=== PATIENT | female | born 1965 | race Caucasian/White ===

== ENCOUNTER 2016-05-14 14:45 | Emergency (ER) | payer OTHER ==
[~2016-05-14] VITALS: Ht 162.6 cm; Wt 60.0 kg
[~2016-05-14 14:45] MED LIST: ALBU2.5V4 INHALATION; ARIP5TAB5 PO; ESCI10TA52 PO; FLUT1DIS5 IH; LAMO100T PO; OMEP20CA11 PO; ONDA8TAB10 PO; PRAM0.128 PO; VERA180T5 PO; albuterol sulfate INHALATION
[2016-05-14 14:47] VITALS: BP 144/83; PULSE 100; RESP 22; O2SAT 99
--- NOTE | 2016-05-14 15:04 | ED.REPORT ---
HPI-Dyspnea / Wheezing Date of Service May 14, 2016 ED Provider: Antione Rodriguez MD 50 year old female with a history of COPD on 2L home O2, anxiety and current every day smoker presents to the ED via EMS due to increased SOB in the last week. Pt is on home O2 and is always slightly dyspneic. For COPD she uses Advair , Spiriva, ProAir (ran out) and Albuterol nebulizers. Since 1100 this morning she has done 3 neb treatment with improvement in symptoms. Associated symptoms include diaphoresis at night. She denies fever ,chills, cough, CP, nausea, vomiting and edema. Pt has been seen for this previously. Her symptoms at the time improved with prednisone. Pt has no cardiac history, no hx of PE/DVT. She is not on anticoagulation and has not been on ABx recently. Nursing Notes Stated Complaint: SHORTNESS OF BREATH Chief Complaint: Respiratory Distress Nursing Notes Reviewed: Yes ([employer], meds not reconciled) Allergies: Coded Allergies: fluoxetine (Verified Allergy, Severe, suicidal, 09/27/15) quetiapine (Verified Allergy, Intermediate, keeps awake, 09/27/15) zolpidem (Verified Allergy, Intermediate, Keeps Awake, 09/27/15) amoxicillin (Verified Adverse Reaction, Intermediate, Nausea,Vomiting, ) clavulanic acid (Verified Adverse Reaction, Intermediate, Nausea,Vomiting , 09/26/15) lisinopril (Verified Adverse Reaction, Intermediate, Nausea,Vomiting, 09/25) trazodone (Verified Adverse Reaction, Intermediate, Nausea,Vomiting, ) Scheduled ([albuterol sulfate]) 5 MG INHALATION QID Albuterol HFA (Proair HFA) 8.5 Gm Hfa.aer.ad 2 PUFFS INHALATION Q4H Aripiprazole (Abilify) 5 Mg Tablet 2.5 MG PO DAILY Azithromycin (Zithromax (Z-[place])) 250 Mg Tablet 250 MG PO DIRECTED Take two tablets by mouth on day 1, then take one tablet daily on days 2 through 5. Escitalopram Oxalate (Escitalopram Oxalate) 10 Mg Tablet 10 MG PO DAILY Lamotrigine (Lamictal) 100 Mg Tablet 100 MG PO DAILY Lamotrigine (Lamictal) 100 Mg Tablet 100 MG PO DAILY@2029 Omeprazole (Omeprazole) 20 Mg Capsule.dr 20 MG PO DAILY Pramipexole Dihydrochloride (Pramipexole Dihydrochloride) 0.125 Mg Tablet 0.125 MG PO HS Prednisone (PredniSONE) 20 Mg Tablet 60 MG PO DAILY Verapamil ER (Verapamil ER) 180 Mg Tablet.er 180 MG PO HS Scheduled PRN Albuterol Neb Soln (Albuterol Neb Soln) 2.5 Mg/3 Ml Vial.neb 2.5 MG INHALATION QID PRN PRN For Shortness of Breath Fluticasone/Salmeterol (Advair 500-50 Diskus) 1 Each Disk.w.dev 1 PUFF IH BID PRN PRN For Shortness of Breath Ondansetron ODT (Ondansetron ODT) 8 Mg Tab.rapdis 8 MG PO Q8H PRN PRN For Nausea General Time Seen by MD: 15:02 Chief Complaint Shortness of breath Hx Obtained From: Patient, EMS Arrived By: Ambulance Sudden in Onset?: No Onset Occurred: More than a week ago... Symptom Duration: Since onset Location: : None Severity: Current: No pain currently Associated with: Reports: Diaphoresis, Denies: Chest pain, Cough, Fever, Nausea, Vomiting Exacerbated by: Activity Similar Sx Previous: Yes Past Medical History Past Medical History Hypertension Mild COPD - on oxygen at home Depression Previous psychiatric hospitalization in 2016 and in 2000 Past Surgical History Reports: Family History noncontributory Smoking History Current Every Day Smoker Social History Alcohol Use: Denies alcohol use Drug Use: Denies drug use Other Social History: Good social support, Local resident Ambulatory Status Independent Review of Systems Basic Review of Systems Eyes: Vision NL, No discharge GI: No abdominal pain, No anorexia, No nausea, No vomiting Neurologic: NL mental status, No weakness, No numbness Psychiatric: Normal thought content Constitutional: Denies: Chills, Fever Respiratory: Reports: Dyspnea on exertion, Shortness of breath, Denies: Non-productive cough Cardiovascular: Denies: Chest pain, Edema Musculoskeletal: Denies: Back pain, Extremity pain Skin: Reports Diaphoresis, Denies Rash Complete sys rev & neg: except as marked. Physical Exam Initial Vital Signs Vital Signs (First) Date Time Temp Pulse Resp B/P Pulse Ox O2 Delivery O2 Flow Rate FiO2 05/14/16 14:47 36.7 100 22 144/83 99 Nasal Cannula 4 Initial VS: Reviewed, Vital signs abnormal Head / Eyes: Atraumatic, Normocephalic, PERRL ENT: Mucous membranes moist, Conjunctiva normal, No scleral icterus Abdomen / GI: Soft, Non-tender, No distention Extremities: Vascular intact, Neuro intact, No swelling (No edema), No tenderness Skin: Warm, Dry, No cyanosis Neurologic: Alert, Oriented, Nonfocal Psychiatric: Mood/affect normal, Behavior normal, Normal thought content General/Constitutional: Awake, Alert chronically ill appearing Neck: Atraumatic, Full range of motion Respiratory / Chest: No rhonchi Wheezing / Retractions: Positive: Wheezing mild (Few scattered wheezes) Moderately tachypneic but not significantly dyspneic at rest. Very poor air movement. Cardiovascular: Regular rhythm, Heart sounds NL, No murmurs, Peripheral circulation NL Heart Rate / Rhythm: Positive: Tachycardia (mild) Interpretation & Diagnostics Lab Results Interpretation Result Diagram: 05/14/16 1501 05/14/16 1501 Test 05/14/16 15:01 White Blood Count 8.5th/mm3 (3.8-10.1) Red Blood Count 5.12mil/mm3 (3.90-5.20) Hemoglobin 15.6g/dL (12.0-15.6) Hematocrit 46.5% (35.0-46.0) Mean Corpuscular Volume 90.8fL (81-100) Mean Corpuscular Hemoglobin 30.5pg (27.0-35.0) Mean Corpuscular Hemoglobin Concent 33.5% (32.0-37.0) Red Cell Distribution Width 13.5% (12.3-15.4) Platelet Count 296bil/L (150-400) Neutrophils (%) (Auto) 69.3% (40-74) Lymphocytes (%) (Auto) 21.2% (14-46) Monocytes (%) (Auto) 7.9% (4-12) Eosinophils (%) (Auto) 1.1% (0-5) Basophils (%) (Auto) 0.4% (0-3) D-Dimer < 0.5mg/L (<0.50) Sodium Level 141mEq/L (134-144) Potassium Level 4.4mEq/L (3.5-5.2) Chloride Level 94mEq/L (97-108) Carbon Dioxide Level 33mmol/L (18-29) Blood Urea Nitrogen 10mg/dL (6-24) Creatinine 0.63mg/dL (0.57-1.00) Estimat Glomerular Filtration Rate 142mL/min (>59) Glucose Level 98mg/dL (60-99) Calcium Level 9.6mg/dL (8.5-10.1) Total Bilirubin 0.3mg/dL (0.0-1.2) Aspartate Amino Transf (AST/SGOT) 22U/L (0-50) Alanine Aminotransferase (ALT/SGPT) 10U/L (0-32) Alkaline Phosphatase 115U/L (25-150) Troponin T < 0.010ug/L (0.0-0.011) Pro-B-Type Natriuretic Peptide 20.47pg/mL (0-249) Total Protein 8.0g/dL (6.4-8.4) Albumin 4.4g/dL (3.4-5.0) Lab Results Interpretation: CBC normal CMP normal Troponin negative BMP negative D-dimer negative General Lab Results Interp 1: Labs reviewed ECG Interpretation Time: 15:24 Interpreted by: ED physician Normal ECG Interpretation: Normal rate (93), Normal sinus rhythm, No acute ischemic changes X-Ray Chest Interpretation Chest Xray Interpretation: IMPRESSION: 1. No acute cardiopulmonary disease. Mild hyperinflation suggesting COPD. Recommend clinical correlation. 2. Probable calcified granuloma in the right mid lung zone. Dictated by: Mika Little M.D. on 05/14/2016 at 15:15 View: Portable, 1 view Interpretation / Wet Read by: Interpret - Radiologist Re-Eval/Medical Decision Med Decision/Clinical Course This is a 50-year-old female O2 dependent COPD presents complaining of a week history of increasing shortness of breath. She denies chest pain, pleuritic discomfort, leg swelling, fevers, chills and really much of a cough. She feels more short of breath. She is using her nebulizers every 4 hours, she is on Advair, she is on Spiriva, although she is out of pro-air-she has been using her nebulizer. Department she is oxygen adequate, she is not febrile, she has a low-grade tachycardia. Chest she has diminished breath sounds on exam, but is on hannah distress, she has no edema or findings of venous thromboembolism or heart failure on clinical exam. Her workup included an EKG without clear ischemic abnormality. Blood work that was normal including a negative troponin, negative d-dimer, and a normal BMP. A chest x-ray does not demonstrate overt failure. This point and not finding evidence of acute cardiac syndrome, congestive heart failure, pulmonary embolism or an overt pneumonia. She does not describe clear-cut infectious symptoms, but I does still remain a leading item in her differential. She remains a smoker despite her 2 years. She is trying to cut back. She feels well enough that she does not wish to be hospitalized, and I am not finding any indication she requires hospitalization at this time. The plan is appear treatment with a course of steroids and azithromycin. He is comfortable with this. Routine precautions are reviewed. Patient is discharged in stable condition. Smoking cessation discussed. Source of Hx: Old records Re-Evaluation/Progress : Time of Eval: 16:32 Re-Evaluation/Progress Note: Rechecked. Pt has improved. Updated pt of labs, ECG and imaging results. Discussed plan for discharge and follow up. All questions addressed. Differential Diagnosis: Positive: COPD exacerbation, Negative: Acute coronary syndrome, Cardiogenic shock, Congestive heart failure, Dysrhythmia, Myocardial infarction, Pneumonia, Pneumothorax, Pulmonary embolism, Respiratory failure Counseled Regarding: Diagnosis, Lab results, Need for follow-up, When/why to return to ED Discharge & Departure Impression: Primary Impression: COPD with acute exacerbation Disposition: Home Discharge Condition All VS Reviewed: Yes Condition: Improved 1. Your blood tests were normal. There were no markers of heart failure, or heart attack, or blood clot. 2. You do have emphysema on your x-ray, but we did not appreciate overt signs of a pneumonia. 3. Continue to work on stopping smoking 4. Take the medication prednisone 60 mg once a day for 5 more days. Next dose is tomorrow. 5. Take the antibiotic azithromycin as prescribed-next dose tomorrow. 6. Return if new or worsening symptoms. 7. Follow up with your primary care provider. Scribe Attestation Portions of this note were transcribed by Anyi Turk. I, (Dr. Rodriguez) personally performed the history, physical exam and medical decision-making; I reviewed and confirmed the accuracy of the information in the transcribed note. Signed by: Anyi Turk. 05/14/2016, 8007 Antione Rodriguez MD May 14, 2016 15:04 Anyi Turk May 14, 2016 15:20
[2016-05-14 15:05] LABS: BASOPHILS % (AUTO) 0.4 % (0-3); EOSINOPHILS % (AUTO) 1.1 % (0-5); MONOCYTES % (AUTO) 7.9 % (4-12); Mean Corpuscular Hemoglobin 30.5 pg (27.0-35.0); Mean Corpuscular Volume 90.8 fL (81-100); NEUTROPHILS % (AUTO) 69.3 % (40-74); Platelet Count 296 bil/L (150-400)
[2016-05-14] MEDS ORDERED: MethylprednisoLONE Sodium Succinate 62.5 mg/mL 2 mL Inj IVPUSH ONE (15:15)
--- NOTE | 2016-05-14 15:17 | DRSVH ---
PROCEDURE: X-RAY CHEST ONE VIEW, PORTABLE ([id number]) INDICATIONS: SHORTNESS OF BREATH TECHNIQUE: One view of the chest was acquired. COMPARISON: None. FINDINGS: Surgical changes and devices: None. Lungs and pleura: No pleural effusions or pneumothorax. Lungs are clear. Mild hyperinflation. Prob able calcified granuloma in the right midlung zone. Mediastinum: Mediastinal contours appear normal. Heart size is normal. Bones and chest wall: No suspicious bony lesions. Overlying soft tissues appear unremarkable. IMPRESSION: 1. No acute cardiopulmonary disease. Mild hyperinflation suggesting COPD. Recommend clinical correlat ion. 2. Probable calcified granuloma in the right mid lung zone. Dictated by: Mika Little M.D. on 05/14/2016 at 15:15 Approved by: Mika Little M.D. on 05/14/2016 at 15:15
[2016-05-14] MEDS ORDERED: Albuterol 2.5 mg/3 mL Inhalation Solution NEB ONE (15:25)
[2016-05-14] MEDS ORDERED: Ipratropium 0.02% 0.5 mg/2.5 mL Inhalation Solution NEB ONE (15:30)
[2016-05-14 15:43] VITALS: PULSE 90; RESP 20; O2SAT 97
[2016-05-14 15:44] LABS: TROPONIN T < 0.010 ug/L (0.0-0.011)
[2016-05-14 16:00] VITALS: BP 130/75; PULSE 99; RESP 17; O2SAT 99
[2016-05-14] MEDS ORDERED: ALBU8.5H2 INHALATION (16:38)
[2016-05-14] MEDS ORDERED: AZIT250T4 PO (16:38)
[2016-05-14] MEDS ORDERED: PRE20 PO (16:38)
[2016-05-14 17:08] VITALS: BP 121/71; PULSE 102; RESP 16; O2SAT 98
== END 2016-05-14 17:10 | disposition home or self-care (01) ==
LOC: EDBD 14:45 → SED 14:45
DX: J44.1 Chronic obstructive pulmonary disease with (acute) exacerbation (principal); R06.02 Shortness of breath; R61 Generalized hyperhidrosis; I10 Essential (primary) hypertension; F17.200 Nicotine dependence, unspecified, uncomplicated; Z88.8 Allergy status to other drugs, medicaments and biological substances; Z88.1 Allergy status to other antibiotic agents
CPT/HCPCS: 36415; 71010; 80053; 83880; 84484; 85025; 85379; 93005; 94640; 94664; 96374; 99285; J2930; J7613